=== PATIENT | female | born 1960 | race Caucasian/White ===

== ENCOUNTER → 2018-06-29 14:28 | Outpatient (CLI) | payer MEDICARE, MEDICAID, SELFPAY ==
--- NOTE | 2018-06-29 | DI.MG.S_ITS ---
BILATERAL DIGITAL SCREENING MAMMOGRAM 3D/2D WITH CAD: 06/29/2018 CLINICAL: Routine screening. Comparison is made to exams dated: 06/06/2017 mammogram, 06/02/2016 mammogram, and 08/14/2012 mammogram - [facility]. There are scattered fibroglandular elements in both breasts. Current study was also evaluated with a Computer Aided Detection (CAD) system. No significant masses, calcifications, or other findings are seen in either breast. There has been no significant interval change. IMPRESSION: NEGATIVE There is no mammographic evidence of malignancy. A 1 year screening mammogram is recommended. This exam was interpreted at Station ID: [id number]. NOTE: For mammograms, a report in lay terms will be sent to the patient. Approximately 15% of breast malignancies will not be visualized mammographically. In the management of a palpable breast mass, a negative mammogram must not discourage biopsy of a clinically suspicious lesion. Electronically Signed By: Adalberto hu/leena:07/02/2018 20:23:38 letter sent: Normal Exam ACR BI-RADS Category 1: Negative 3341F
== END ==
PROVIDERS: PCP Family Medicine; Visit Provider Family Medicine
DX: Z12.31 Encounter for screening mammogram for malignant neoplasm of breast (principal)
CPT/HCPCS: 77063; 77067

== ENCOUNTER → 2020-01-15 14:45 | Outpatient (CLI) | payer MEDICARE, MEDICAID, SELFPAY ==
--- NOTE | 2020-01-15 14:47 | DI.RAD.S_ITS ---
PROCEDURE: XR LUMBAR SPINE MIN 4V INDICATIONS: LBP TECHNIQUE: 4 views of the lumbar spine were acquired. COMPARISON: None. FINDINGS: Bones: 5 nonrib-bearing vertebrae are present. There is normal bony alignment. Note is made of a mild degree of degenerative disc disease along the LS-spine to the L5-S1 level where moderate such degeneration can be seen on the lateral view. The facets show moderate degenerative facet osteoarthritis at L3-4 and L4-5 and moderately severe such degeneration at L5-S1. No vertebral body compression fractures. No suspicious bony lesions. Soft tissues: Overlying bowel gas pattern is normal. No suspicious soft tissue calcifications. Oblique images: No pars defects. IMPRESSION: Progressively greater degenerative disc disease and facet osteoarthritis along the lower lumbosacral spine most pronounced at L5-S1 where significant spinal and foraminal stenosis would be suspected. Large body habitus. Dictated by: Jaret Hilliard M.D. on 01/15/2020 at 16:47 Approved by: Jaret Hilliard M.D. on 01/15/2020 at 16:48
== END ==
PROVIDERS: PCP Family Medicine; Referring Provider Physical Medicine & Rehabilitation; Visit Provider Physical Medicine & Rehabilitation
DX: M51.16 Intervertebral disc disorders with radiculopathy, lumbar region (principal); M51.17 Intervertebral disc disorders with radiculopathy, lumbosacral region; M47.26 Other spondylosis with radiculopathy, lumbar region; M47.27 Other spondylosis with radiculopathy, lumbosacral region; E66.01 Morbid (severe) obesity due to excess calories; Z98.84 Bariatric surgery status; Z85.42 Personal history of malignant neoplasm of other parts of uterus
CPT/HCPCS: 72110; 99214

== ENCOUNTER → 2020-02-24 09:58 | Outpatient (CLI) | payer MEDICARE, MEDICAID, SELFPAY ==
[2020-02-25 03:47] LABS: COVID19 Sendout Not Detected (Not Detect)
== END ==
PROVIDERS: PCP Family Medicine; Visit Provider Nurse Practitioner
DX: Z01.812 Encounter for preprocedural laboratory examination (principal)
CPT/HCPCS: 87635

== ENCOUNTER 2020-02-27 13:44 | Outpatient (CLI) | payer MEDICARE, MEDICAID, SELFPAY ==
[2020-02-27] VITALS (8 sets, daily range): BP systolic 117–148; BP diastolic 65–95; PULSE 72–82; RESP 15–18; TEMP 37.3; O2SAT 97–100
--- NOTE | 2020-02-27 | DI.RAD.S_ITS ---
PROCEDURE: PAIN L INTERLAMINAR/CAUDAL INJ INDICATIONS: Other intervertebral disc displacement, lumbosacral region COMPARISON: None. FINDINGS: Fluoroscopic spot filming was performed to verify placement of spinal needles at the L5-S1 level(s), as labeled on the films. Appropriate location(s) of the needle tip(s) was confirmed by injection of iodinated contrast. Dictated by: Alessio Todd M.D. on 02/27/2020 at 16:23 Approved by: Alessio Todd M.D. on 02/27/2020 at 16:25
[2020-02-27] MEDS: MIDAZOLAM 5 MG/5 ML VIAL IV (15:00)
[2020-02-27] MEDS: fentaNYL 100 MCG/2 ML INJ 50 MCG IV (15:00)
[2020-02-27] MEDS: DEXAMETHASONE 10 MG/ML VIAL 20 MG INJ (15:04)
[2020-02-27] MEDS: IOPAMIDOL 15 ML VIAL 3 ML INJ (15:04)
[2020-02-27] MEDS: BETAMETHASONE 30 MG/5 ML MDV 6 MG INJ (15:05)
[2020-02-27] MEDS: BUPIVACAINE 0.25% (PF) VIAL 2 ML INJ (15:05)
--- NOTE | 2020-02-27 15:16 | P.PCN_ITS ---
Date/Time/Diagnoses Date of procedure: 02/27/20 Time of procedure: 15:16 Pre-procedure diagnosis: 1. HNP WITH RADICULAR FEATURES, 2. MULTILEVEL CENTRAL STENOSIS, Post-procedure diagnosis: same Procedure Notes Procedure: 1. FLUOROSCOPICALLY GUIDED CONTRAST CONTROLLED INTERLAMINAR EPIDURAL STEROID INJECTION -para right L5/S1 Indications: Martha is referred by Dr. Treviño for treatment of Bilateral Foraminal Stenosis L>R LE symptoms. Physician: Titus Carranza Total Fluoroscopy time (seconds): 9 Total sedation minutes: 24 Complications: none Procedure in detail & Post-procedure care: FINDINGS Multilevel Central Spinal Stenosis with Nerve Root Compression DESCRIPTION OF PROCEDURE Fluoroscopically guided, contrast-controlled L5/S1 translaminar epidural steroid injection. Following review of allergy and review of potential side effects and complications, including, but not necessarily limited to, infection, allergic reaction, local tissue breakdown, temporary as well as permanent nerve injury, paralysis, stroke and possible , the patient indicated that the patient understood and agreed to proceed. An informed consent document was signed by the patient, witnessed by a nurse, and placed in the patient's chart. Additionally, other treatment options including modalities, medications, and physical therapy were reviewed with the patient. After review of previous anaesthesic history and IV conscious sedation the patient was deemed safe to proceed with today?s procedure with IV conscious sedation as ASA class II designation. Safety time-out was performed to confirm patient ID, procedure to be performed and site of procedure. IV sedation was accomplished with a combination of 3mg of Versed and 50mcg of Fentanyl administered by the RN after DO order, titrated to patient comfort during the course of the procedure while the patient remained responsive to all verbal commands. In the prone position, following sterile prep and drape of the lumbar region, the L5/S1 translaminar space was identified fluoroscopically. The skin was anesthetized via a 25-gauge, 1.5-inch needle with 1% lidocaine solution. At this point, a 22-gauge short bevel spinal needle was atraumatically introduced and advanced under fluoroscopic guidance into the region of the L5/S1 translaminar space. Depth was confirmed on lateral view. Radiological data, including multiple fluoroscopic views of the lumbar spine, reveal a spinal needle at the L5/S1 translaminar space. Lateral views then show placement of the needle in the epidural space. Subsequent views show contrast material flowing superiorly and inferiorly in the epidural space. No vascular or intrathecal uptake is observed. At this point, using loss of resistance technique with saline and air, the epid ural space was entered. This was confirmed following negative aspiration with injection of approximately 1.5 cc of Isovue 200, showing excellent epidural flow without vascular or intrathecal uptake. At this point, 1 cc of 1% lidocaine solution combined with 3cc or 20mg of dexamethasone and 6mg of betamethasone was injected without incident. The patent tolerated the procedure without signs of symptoms of complications prior to transfer to the recovery area for further monitoring. The patient was then transferred to the recovery area where they were observed for an appropriate period of time after the injection. The patient reported a VAS score of 6 prior to the procedure and a post-procedure VAS of 0. POST OP INSTRUCTIONS The patient was provided a Pain Log to continue to record their response to the target-specific procedure prior to follow-up visit with their referring physician. Additionally, specific post-injection care instructions and a contact number to our office were provided if concerns arise regarding possible complications associated with the procedure are suspected.
--- NOTE | 2020-02-27 16:06 | PC.NURSE ---
1518: pt returned to pre proc room by . SBA for transfer from to chair. Monitoring resumed
--- NOTE | 2020-02-27 16:08 | PC.NURSE ---
Pt tolerated procedure well. VSS upon transfer to post procedure room. Report given to LATIA Werner. PERI Fent and Versed given by Kayy Levin. All other meds administered by Dr. Carranza.
== END 2020-02-27 16:00 | disposition home or self-care (01) ==
LOC: RAD 13:46
PROVIDERS: PCP Family Medicine; Referring Provider Physical Medicine & Rehabilitation; Visit Provider Physical Medicine & Rehabilitation
DX: M51.17 Intervertebral disc disorders with radiculopathy, lumbosacral region (principal); M48.07 Spinal stenosis, lumbosacral region
CPT/HCPCS: 62323; 99152; J0702; J1100; J2250; J3010

== ENCOUNTER → 2020-06-26 10:53 | Outpatient (CLI) | payer MEDICARE, MEDICAID, SELFPAY ==
--- NOTE | 2020-06-26 | DI.MG.S_ITS ---
BILATERAL DIGITAL SCREENING MAMMOGRAM 3D/2D WITH CAD: 06/26/2020 CLINICAL: Routine screening. Comparison is made to exam dated: 06/29/2018 [facility]. The tissue of both breasts is predominantly fatty. Current study was also evaluated with a Computer Aided Detection (CAD) system. No significant masses, calcifications, or other findings are seen in either breast. There has been no significant interval change. IMPRESSION: NEGATIVE There is no mammographic evidence of malignancy. A 1 year screening mammogram is recommended. This exam was interpreted at Station ID: [id number]. NOTE: For mammograms, a report in lay terms will be sent to the patient. Approximately 15% of breast malignancies will not be visualized mammographically. In the management of a palpable breast mass, a negative mammogram must not discourage biopsy of a clinically suspicious lesion. Electronically Signed By: Isidra watkins/leena:06/26/2020 13:00:36 letter sent: Normal Exam ACR BI-RADS Category 1: Negative [id number]
== END ==
PROVIDERS: PCP Family Medicine; Referring Provider Family Medicine; Visit Provider Family Medicine
DX: Z12.31 Encounter for screening mammogram for malignant neoplasm of breast (principal)
CPT/HCPCS: 77063; 77067

== ENCOUNTER 2020-07-23 14:08 | Outpatient (CLI) | payer MEDICARE, MEDICAID, SELFPAY ==
[2020-07-23] VITALS (8 sets, daily range): BP systolic 103–135; BP diastolic 59–79; PULSE 74–87; RESP 16–21; TEMP 36.8–36.9; O2SAT 98–100
--- NOTE | 2020-07-23 14:11 | DI.RAD.S_ITS ---
PROCEDURE: PAIN L INTERLAMINAR/CAUDAL INJ INDICATIONS: SPONDYLOSIS COMPARISON: [facility], CR, XR LUMBAR SPINE MIN 4V, 01/15/2020, 14:48. [facility], RG, MRI L-SPINE W/O CONTRAST, 11/29/2019, 11:55. [facility], XA, PAIN L INTERLAMINAR/CAUDAL INJ, 02/27/2020, 14:04. FINDINGS: Fluoroscopic spot filming was performed to verify placement of spinal needles at the L5-S1 level(s), as labeled on the films. Appropriate location(s) of the needle tip(s) was confirmed by injection of iodinated contrast. IMPRESSION: Fluoroscopy for pain management. Dictated by: Juan Enamorado M.D. on 07/23/2020 at 16:03 Approved by: Juan Enamorado M.D. on 07/23/2020 at 16:04
--- NOTE | 2020-07-23 15:07 | PM.PROC.IR.1 ---
Date/Time/Diagnoses Date of procedure: 07/23/20 Time of procedure: 15:29 Pre-procedure diagnosis: 1. HNP WITH RADICULAR FEATURES, 2. MULTILEVEL CENTRAL STENOSIS, Post-procedure diagnosis: same Procedure Notes Procedure: 1. FLUOROSCOPICALLY GUIDED CONTRAST CONTROLLED INTERLAMINAR EPIDURAL STEROID INJECTION - L5/S1 Indications: Martha is referred by Dr. Treviño for treatment of Bilateral Foraminal Stenosis L>R LE symptoms. Physician: Titus Carranza Total Fluoroscopy time (seconds): 5 Total sedation minutes: 10 Complications: none Procedure in detail & Post-procedure care: FINDINGS Multilevel Central Spinal Stenosis with Nerve Root Compression DESCRIPTION OF PROCEDURE Fluoroscopically guided, contrast-controlled L5/S1 translaminar epidural steroid injection. Following review of allergy and review of potential side effects and complications, including, but not necessarily limited to, infection, allergic reaction, local tissue breakdown, temporary as well as permanent nerve injury, paralysis, stroke and possible , the patient indicated that the patient understood and agreed to proceed. An informed consent document was signed by the patient, witnessed by a nurse, and placed in the patient's chart. Additionally, other treatment options including modalities, medications, and physical therapy were reviewed with the patient. After review of previous anaesthesic history and IV conscious sedation the patient was deemed safe to proceed with today?s procedure with IV conscious sedation as ASA class II designation. Safety time-out was performed to confirm patient ID, procedure to be performed and site of procedure. IV sedation was accomplished with a combination of 3mg of Versed and 50mcg of Fentanyl administered by the RN after DO order, titrated to patient comfort during the course of the procedure while the patient remained responsive to all verbal commands. In the prone position, following sterile prep and drape of the lumbar region, the L5/S1 translaminar space was identified fluoroscopically. The skin was anesthetized via a 25-gauge, 1.5-inch needle with 1% lidocaine solution. At this point, a 22-gauge, 5 short bevel spinal needle was atraumatically introduced and advanced under fluoroscopic guidance into the region of the L5/S1 translaminar space. Depth was confirmed on lateral view. Radiological data, including multiple fluoroscopic views of the lumbar spine, reveal a spinal needle at the L5/S1 translaminar space. Lateral views then show placement of the needle in the epidural space. Subsequent views show contrast material flowing superiorly and inferiorly in the epidural space. No vascular or intrathecal uptake is observed. At this point, using loss of resistance technique with saline and air, the epidural space was entered. This was confirmed following negative aspiration with injection of approximately 1.5cc of Isovue 200, showing excellent epidural flow without vascular or intrathecal uptake. At this point, 1cc of 1% lidocaine solution combined with 3cc or 20mg of dexamethasone and 6mg of betamethasone was injected without incident. The patent tolerated the procedure without signs of symptoms of complications prior to transfer to the recovery area for further monitoring. The patient was then transferred to the recovery area where they were observed for an appropriate period of time after the injection. The patient reported a VAS score of 6 prior to the procedure and a post-procedure VAS of 0. POST OP INSTRUCTIONS The patient was provided a Pain Log to continue to record their response to the target-specific procedure prior to follow-up visit with their referring physician. Additionally, specific post-injection care instructions and a contact number to our office were provided if concerns arise regarding possible complications associated with the procedure are suspected.
[2020-07-23] MEDS: fentaNYL 100 MCG/2 ML INJ 50 MCG IV (15:13)
[2020-07-23] MEDS: MIDAZOLAM 5 MG/5 ML VIAL IV (15:13)
[2020-07-23] MEDS: IOPAMIDOL 15 ML VIAL 3 ML INJ (15:18)
[2020-07-23] MEDS: BUPIVACAINE 0.25% (PF) VIAL 2 ML INJ (15:18)
[2020-07-23] MEDS: DEXAMETHASONE 10 MG/ML VIAL 20 MG INJ (15:19)
[2020-07-23] MEDS: BETAMETHASONE 30 MG/5 ML MDV 6 MG INJ (15:19)
== END 2020-07-23 15:45 | disposition home or self-care (01) ==
LOC: RAD 14:10
PROVIDERS: PCP Family Medicine; Referring Provider Physical Medicine & Rehabilitation; Visit Provider Physical Medicine & Rehabilitation
DX: M51.17 Intervertebral disc disorders with radiculopathy, lumbosacral region (principal); M48.07 Spinal stenosis, lumbosacral region
CPT/HCPCS: 62323; 99152; J0702; J1100; J2250; J3010

== ENCOUNTER → 2021-07-22 14:12 | Outpatient (CLI) | payer MEDICARE, MEDICAID, SELFPAY | PROVIDERS: PCP Family Medicine; Visit Provider Family Medicine | DX: R30.0 Dysuria (principal) | CPT/HCPCS: 87086 ==

== ENCOUNTER → 2021-11-01 14:11 | Outpatient (CLI) | payer MEDICARE, MEDICAID, SELFPAY | PROVIDERS: PCP Family Medicine; Visit Provider Family Medicine | DX: Z79.891 Long term (current) use of opiate analgesic (principal) ==

== ENCOUNTER → 2021-12-08 13:10 | Outpatient (CLI) | payer MEDICARE, MEDICAID, SELFPAY ==
--- NOTE | 2021-12-08 13:12 | DI.RAD.S_ITS ---
PROCEDURE: XR LUMBAR SPINE MIN 4V INDICATIONS: BACK PAIN TECHNIQUE: 5 views of the lumbar spine acquired, including flexion and extension views. COMPARISON: [facility], , XR LUMBAR SPINE MIN 4V, 01/15/2020, 14:48. FINDINGS: Bones: 5 nonrib-bearing vertebrae are present. There is normal bony alignment. No vertebral body compression fractures. No suspicious bony lesions. Anterior osteophytes are seen at multiple levels. Disc space narrowing and endplate degenerative changes at T12-L1, L1-2, and L5-S1. Mild facet arthrosis in the lower lumbar spine. There is mild leftward curvature of the thoracolumbar spine. Soft tissues: Overlying bowel gas pattern is normal. No suspicious soft tissue calcifications. Extensive surgical clips of the abdominal wall are noted. Flexion/extension: There is normal range of motion, with preserved normal alignment. IMPRESSION: 1. Degenerative disc disease as above. 2. Facet arthrosis in the lower lumbar spine. 3. No acute abnormality. Dictated by: Andi Conklin M.D. on 12/08/2021 at 16:52 Approved by: Andi Conklin M.D. on 12/08/2021 at 16:54
== END ==
PROVIDERS: PCP Family Medicine; Referring Provider Physical Medicine & Rehabilitation; Visit Provider Physical Medicine & Rehabilitation
DX: M51.27 Other intervertebral disc displacement, lumbosacral region (principal); M47.816 Spondylosis without myelopathy or radiculopathy, lumbar region; M47.817 Spondylosis without myelopathy or radiculopathy, lumbosacral region; M47.815 Spondylosis without myelopathy or radiculopathy, thoracolumbar region; S83.207A Unspecified tear of unspecified meniscus, current injury, left knee, initial encounter; F31.12 Bipolar disorder, current episode manic without psychotic features, moderate; E66.01 Morbid (severe) obesity due to excess calories; Z68.42 Body mass index [BMI] 45.0-49.9, adult
CPT/HCPCS: 72110; 99214

== ENCOUNTER 2022-12-20 10:24 | Emergency (ER) | payer MEDICARE, MEDICAID, SELFPAY ==
[2022-12-20] VITALS (12 sets, daily range): BP systolic 125–147; BP diastolic 61–90; PULSE 79–104; RESP 15–21; TEMP 36.5; O2SAT 95–100; BMI 47.0
--- NOTE | 2022-12-20 10:48 | DI.RAD.S_ITS ---
PROCEDURE: XR CHEST 1V INDICATIONS: Shortness of breath TECHNIQUE: One view of the chest was acquired. COMPARISON: None. FINDINGS: Surgical changes and devices: None. Lungs and pleura: Low lung volumes, limiting evaluation. There may be a right basal opacity. Mediastinum: Borderline enlarged heart. Bones and chest wall: No suspicious bony lesions. Overlying soft tissues appear unremarkable. IMPRESSION: Possible right basal opacity representing infectious/inflammatory airspace disease or atelectasis. Consider future imaging surveillance to assess for resolution. Low lung volumes limit evaluation. Dictated by: Clifton Oneal M.D. on 12/20/2022 at 11:43 Approved by: Clifton Oneal M.D. on 12/20/2022 at 11:43
[2022-12-20 11:01] LABS: Amorphous Sediment Urine 1+; Bacteria Urine Few (2-10); Culture Indicated Urine Specimen Cultured; RBC Urine None Seen (0-5/HPF); Squamous Epithelial Cell Urine 5-10 /HPF (0-5/HPF); WBC Urine 5-10/HPF (0-5/HPF)
[2022-12-20 11:19] LABS: Add Manual Diff / Slide Review NO; Basophils Absolute Auto 100 /uL (0-100); Basophils Percent Auto 0.7 % (0-2); Eosinophils Absolute Auto 100 /uL (0-450); Eosinophils Percent Auto 1.5 % (2-4); Hematocrit 33.6 % (36-46); Hemoglobin 10.5 g/dL (12.0-16.0); Lymphocytes Absolute Auto 2400 /uL (1100-4500); Mean Corpuscular HGB Conc 31.1 % (30-36); Mean Corpuscular Hemoglobin 24.3 PG (26-34); Monocytes Absolute Auto 800 /uL (0-900); Monocytes Percent Auto 7.7 % (3-14); Neutrophils Absolute Auto 6300 /uL (1500-7000); Neutrophils Percent Auto 65.1 % (50-75); Platelet Count 296 X10^3/uL (150-400); Red Cell Distribution Width 17.2 % (11.6-14.8); White Blood Cell Count 9.8 X10^3/uL (4.5-11.0)
[2022-12-20 11:39] LABS: Alanine Aminotransferase 25 IU/L (<35); Albumin 3.8 g/dL (3.5-5.0); Albumin Globulin Ratio 1.2 (1.0-2.8); Alkaline Phosphatase 77 U/L (38-126); Aspartate Aminotransferase 36 IU/L (14-36); BUN Creatinine Ratio 22.1 (6-22); Bilirubin Total 0.8 mg/dL (0.2-1.3); Blood Urea Nitrogen 19 mg/dL (7-17); Calcium 8.3 mg/dL (8.4-10.2); Carbon Dioxide 21 mmol/L (22-32); Chloride 106 mmol/L (98-107); Creatine Kinase 127 U/L (30-135); Estimated Glomerular Filt Rate > 60 mL/min (>60); Globulin 3.3 g/dL (1.7-4.1); Glucose 311 mg/dL (80-110); HEMOLYSIS < 15 (0-50); Lipase 85 U/L (23-300); Magnesium 1.3 mg/dL (1.6-2.3); Potassium 4.1 mmol/L (3.4-5.1); Sodium 139 mmol/L (137-145); Total Protein 7.1 g/dL (6.3-8.2)
[2022-12-20 11:47] LABS: COVID19 -Nasal RAPID Negative (Negative)
[2022-12-20 11:51] LABS: NT-proBNP (BNP-Adult 18+) 131 pg/mL (<125); Troponin I < 0.012 ng/mL (0.01-0.034)
[2022-12-20 11:54] LABS: CKMB % Relative Index 2.1 % (1.5-5.0); Creatine Kinase MB 2.64 ng/mL (<2.37)
--- NOTE | 2022-12-20 13:05 | DI.ECHO.S_ITS ---
[facility] +---------+ : : [address] : : [place], [place] : : : : [id number] : : : : Phone: [phone]+ Echocardiogram Report + + :Name: ALLAN GARCIA Study Date: 12/20/2022 Height: 67 in : :[facility] ReadingLocation: Weight: 300 lb : : Gender: Female BSA: 2.4 m2 : :: 1960 Age: 62 yrs BP: 146/80 mmHg: :Reason For Study: SHORTNESS OF BREATH : :Ordering Physician: OCTAVIA SINGHAPerformed By: Augusta Rosario : :Referring: MARNIE SINGH : + + Interpretation Summary This is a technically difficult study enhanced with Definity echocontrast. Normal LV size, wall thickness, wall motion and LV systolic function. EF is 60-65%. Normal chamber sizes. No significant valvular abnormalities. No prior study available for comparison. Procedure: A two-dimensional transthoracic echocardiogram with color flow and Doppler was performed. The study quality was technically difficult. There is no prior echocardiogram noted for this patient. A contrast injection of Definity was performed to improve assessment of LV function. The patient was in sinus rhythm with heart rates between 75-100 bpm during the exam. Left Ventricle: The left ventricle is normal in size and wall thickness. The ejection fraction is estimated to be 60-65%. Right Ventricle: The right ventricle is grossly normal size. The right ventricular systolic function is normal. Atria: The left atrial size is normal. Right atrial size is normal. There is no Doppler evidence for an interatrial shunt. Mitral Valve: The mitral valve is normal in structure and function. There is no mitral regurgitation noted. Aortic Valve: The aortic valve is trileaflet. The aortic valve opens well. There is no aortic valve stenosis. No aortic regurgitation is present. Tricuspid Valve: The tricuspid valve is normal in structure and function. There is a trace or physiologic amount of tricuspid regurgitation. Pulmonic Valve: The pulmonic valve is not well visualized. There is no pulmonic valvular regurgitation. Great Vessels: The aortic root is normal size. The dimensions of the ascending aorta are normal. The inferior vena cava was not well visualized. Pericardium/ Pleura There is no pericardial effusion. There is no pleural effusion. MMode/2D Measurements & Calculations LVIDd: 4.6 cm LVOT diam: 2.1 cm LVIDs: 3.1 cm Ao root diam: 2.8 cm FS: 33.3 % asc Aorta Diam: 2.9 cm IVSd: 1.0 cm LVPWd: 0.91 cm LV sousa. diameter/BSA (cm/m^2): 1.9 LV sys. diameter/BSA (cm/m^2): 1.3 LA A2 area: 18.2 cm2 RA long axis: 4.4 cm LA A4 area: 19.0 cm2 RA area: 13.9 cm2 LA length (vol): 5.3 cm RA vol: 37.5 ml LA vol: 55.4 ml RA : 15.6 ml/m2 LA vol index: 23.1 ml/m2 RVD1 (basal): 4.1 cm RVD2 (mid): 3.4 cm TAPSE: 2.3 cm Doppler Measurements & Calculations Ao V2 max: 104.8 cm/sec LVOT Max Mikey: 69.3 cm/sec Ao V2 mean: 81.7 cm/sec LV V1 max P.9 mmHg Ao max P.4 mmHg LV V1 VTI: 17.2 cm Ao mean P.8 mmHg ANGELIKA(I,D): 2.5 cm2 Ao V2 VTI: 23.6 cm ANGELIKA(V,D): 2.3 cm2 sev ratio: 0.73 ANGELIKA indexed to BSA (cm^2/m^2): 1.0 MV E max mikey: 69.3 cm/sec SV(LVOT): 59.1 ml MV A max mikey: 74.4 cm/sec MV E/A: 0.93 Med Peak E' Mikey: 6.1 cm/sec E/E' med: 11.3 Lat Peak E' Mikey: 6.7 cm/sec E/E' lat: 10.4 E/e' average: 10.8 MV dec time: 0.21 sec Electronically signed by: Sue Rico M.D. on Reading Physician:12/20/2022 04:21 PM
--- NOTE | 2022-12-20 14:19 | ED_ITS ---
HPI - General Adult <Sandra Shearer PA-C - Last Filed: 12/20/22 18:11> General Chief complaint: Shortness of Breath/Dyspnea Stated complaint: trouble breathing x 1 wk; Time Seen by Provider: 12/20/22 10:50 Source: patient Mode of arrival: Ambulatory History of Present Illness HPI narrative: 62-year-old female with past medical history depression, osteoarthritis, anxiety, chronic pain, obstructive sleep apnea presents to the ED with 3 months of worsening fatigue, shortness of breath. Patient states that she is homebound in her 2nd floor apartment since she is unable to climb stairs due to her knee condition, is therefore extremely sedentary. Patient states that she has had worsening fatigue and shortness of breath over the 3 months. Patient states that she awakens every night from sleep feeling sweaty and short of breath. Patient denies chest pain, fever, chills, nausea, vomiting, abdominal pain, dysuria, lightheadedness, dizziness, syncope. Patient was seen by her PCP Dr. Miller last week, he recommended that she be screened with the echocardiogram and labs for congestive heart failure. Patient lost her to congestive heart failure some years ago, and is extremely anxious to get the echocardiogram as soon as possible. The echo is currently scheduled for January, patient states that she would like to expedite that. Related Data Previous Rx's Medication Instructions Recorded triamcinolone acetonide 0.5 % 1 applic topical BID #15 grams 05/02/22 topical cream paroxetine HCl 20 mg tablet (Paxil) 20 mg PO DAILY #90 tabs 07/05/22 naloxone 4 mg/actuation nasal 4 mg intranasal Q3M PRN opioid 09/19/22 spray (Narcan) overdose #2 ea quetiapine 25 mg tablet (Seroquel) 25 mg PO BID #180 tabs 09/19/22 ibuprofen 800 mg tablet 800 mg PO .PRN #30 tabs 09/20/22 diazepam 2 mg tablet 2 mg PO TID PRN anxiety #90 tabs 11/17/22 hylan g-f 20 48 mg/6 mL 48 mg (6 mL) intra-articular ONCE 11/23/22 intra-articular syringe #6 mL (Mabaya) elevated toilet seat #1 ea 11/24/22 oxycodone-acetaminophen 10 mg-325 2 tab PO QID #240 tabs 12/19/22 mg tablet (Percocet) cefpodoxime 200 mg tablet 200 mg PO BID 10 days #20 tabs 12/20/22 Allergies Allergy/AdvReac Type Severity Reaction Status Date / Time No Known Drug Allergies Allergy Verified 12/12/22 14:24 Review of Systems <Sandra Shearer PA-C - Last Filed: 12/20/22 18:11> Review of Systems ROS Unobtainable: All systems reviewed & are unremarkable except as noted in HPI and below Constitutional Constitutional: Denies chills, Denies fatigue, Denies fever(s), Denies frequent falls, Denies lethargy and Denies weakness Eyes Eyes: Denies change in vision, Denies eye discharge, Denies irritation and Denies loss of vision ENT Ears, Nose, Mouth, and Throat: Denies change in voice, Denies dizziness, Denies neck pain, Denies sore throat and Denies throat swelling Cardiovascular Cardiovascular: Denies chest pain, Denies irregular heart rhythm, Denies lightheadedness, Denies palpitations, Denies dyspnea, Denies dyspnea on exertion and Denies orthopnea Respiratory Respiratory: Denies cough, Denies dyspnea, Denies dyspnea on exertion and Denies wheezing Gastrointestinal Gastrointestinal: Denies abdominal pain, Denies change in bowel habits, Denies diarrhea, Denies nausea and Denies vomiting Genitourinary Genitourinary: Denies hematuria, Denies flank pain, Denies urinary incontinence and Denies urinary urgency Musculoskeletal Musculoskeletal: Denies back pain, Denies muscle weakness, Denies neck pain, Denies numbness and Denies tingling Integumentary/Breasts Skin/Breast: Denies pruritus, Denies erythema, Denies rash and Denies wounds Neurologic Neurologic: Denies behavioral changes, Denies confusion, Denies dizziness, Denies frequent falls, Denies loss of vision, Denies numbness, Denies tingling and Denies weakness Psychiatric Psychiatric: Denies anxiety, Denies behavioral changes, Denies confusion, Denies depression, Denies homicidal ideation and Denies suicidal ideation Endocrine Endocrine: Denies fatigue, Denies flushing and Denies palpitations Hematologic/Lymphatic Hematologic/Lymphatic: Denies easy bruising Allergic/Immunologic Allergic/Immunologic: Denies urticaria, Denies throat swelling and Denies wheezing Patient History <Sandra Shearer PA-C - Last Filed: 12/20/22 18:11> Medical History Acne Acquired spondylolysis of lumbar spine Acute bilateral low back pain with bilateral sciatica Acute meniscal tear of left knee Anxiety (~2009) Benign paroxysmal vertigo Bipolar disorder Chronic back pain (~2006) Chronic pain syndrome Depression (~2009) Endometrial cancer (~2015) Facet arthropathy, lumbar Fractures (~1985) Hearing loss Heavy menstrual period (~1977) Herniated nucleus pulposus, L5-S1, right History of uterine cancer (~2013) Irregular menstrual cycle (~1974) Medicare annual wellness visit, subsequent Morbid obesity Morbid obesity due to excess calories Obstructive sleep apnea Osteoarthritis of left knee Other dorsalgia Ovarian cyst (~1973) Pain in left arm Pain in right leg Painful menstrual periods (~1974) Prediabetes Psoriasis Sleep apnea, unspecified Vision disorder Well adult exam Surgical History Anesthesia H/O: hysterectomy History of foot surgery (~1985) History of gastric bypass (~2000) History of tonsillectomy Status post gastric bypass for obesity Status post laparoscopic cholecystectomy Family History Father Diabetes mellitus Mother Brain bleed Social History Smoking Status: Never smoker Smoking Status: Never smoker Substance Use Type: does not use Exam <Sandra Shearer PA-C - Last Filed: 12/20/22 18:11> Narrative Exam Narrative: Const General:?cooperative, healthy appearing and comfortable [facility] Head:?normal to inspection Ears:?hearing grossly normal bilaterally Nose:?external nose normal Face and sinus:?normal facial exam and sinuses nontender Mouth:?oral mucosae normal Throat:?posterior oropharynx normal Eyes General:?appearance normal, both eyes and all related structures Neck Neck:?normal visual inspection and no lymphadenopathy noted Resp Effort & Inspection:?normal respiratory effort Auscultation:?clear to auscultation bilaterally Cardio Rate:?regular rate Rhythm:?regular rhythm GI Abdomen appears distended, is however soft. No tenderness to palpation. Neuro General:?patient alert, patient awake and patient oriented x3 Initial Vital Signs Initial Vital Signs: Vital Signs Pulse Rate 104 H 12/20/22 10:36 Pulse Oximetry 96 12/20/22 10:36 <Jeramie Costa DO - Last Filed: 12/20/22 18:32> Initial Vital Signs Initial Vital Signs: Vital Signs Pulse Rate 104 H 12/20/22 10:36 Pulse Oximetry 96 12/20/22 10:36 Course <Sandra Shearer PA-C - Last Filed: 12/20/22 18:11> Orders Ordered: ED Orders 12/20/22 10:38 Urine Culture Stat Urine Microscopic Stat 12/20/22 10:48 XR chest 1V Stat EKG-12 Lead Stat Measure peak expiratory flow ONCE RT Consult Eval and Treat NOW 12/20/22 11:09 Complete Blood Count AUTO DIFF Stat Comprehensive Metabolic Panel Stat D Dimer Stat Lactate (Lactic Acid) Stat Lipase Stat Magnesium Stat NT-proBNP (BNP-Adult 18+) Stat Prothrombin Time INR Stat Troponin & CK Cardiac Panel Stat 12/20/22 11:23 COVID19 -Nasal RAPID Stat 12/20/22 12:59 Consult to SPOOL TENDER - Cardiac Rehabilitation Program Director Stat 12/20/22 13:00 VBG [Venous Blood Gas] Stat 12/20/22 13:05 EC echo complete with contrast Stat 12/20/22 13:18 Venous Blood Gas Stat 12/20/22 16:15 Troponin I Stat Discontinued Medications Sodium Chloride (Normal Saline 0.9%) 1,000 mls @ 1,000 mls/hr IV BOLUS ONE Stop: 12/20/22 16:07 Last Infusion: 12/20/22 16:58 Dose: 0 mls/hr Documented By: Admin: 12/20/22 16:30 Dose: 1,000 mls/hr Documented By: MAYELIN Vital Signs Vital signs: Vital Signs - 8 hr 12/20/22 10:41 12/20/22 10:36 12/20/22 10:37 Temperature 97.7 F Pulse Rate 93 H 104 H 97 H Respiratory Rate 20 Blood Pressure 141/75 H Pulse Oximetry 99 96 99 Oxygen Delivery Method Room Air 12/20/22 10:37 12/20/22 11:00 12/20/22 11:12 Temperature Pulse Rate 82 88 Respiratory Rate Blood Pressure 147/75 H Pulse Oximetry 95 98 Oxygen Delivery Method 12/20/22 11:12 12/20/22 11:30 12/20/22 11:54 Temperature Pulse Rate 79 89 Respiratory Rate Blood Pressure 125/63 Pulse Oximetry 97 98 Oxygen Delivery Method 12/20/22 11:54 12/20/22 11:57 12/20/22 11:57 Temperature Pulse Rate 80 Respiratory Rate 21 Blood Pressure 135/68 133/61 Pulse Oximetry 100 Oxygen Delivery Method 12/20/22 12:00 12/20/22 12:01 12/20/22 12:01 Temperature Pulse Rate 82 82 Respiratory Rate 15 17 Blood Pressure 146/70 H Pulse Oximetry 97 96 Oxygen Delivery Method 12/20/22 12:35 12/20/22 16:57 Temperature Pulse Rate 79 Respiratory Rate 18 Blood Pressure 140/90 Pulse Oximetry 98 95 Oxygen Delivery Method Room Air <Jeramie Costa DO - Last Filed: 12/20/22 18:32> Orders Ordered: ED Orders 12/20/22 10:38 Urine Culture Stat Urine Microscopic Stat 12/20/22 10:48 XR chest 1V Stat EKG-12 Lead Stat Measure peak expiratory flow ONCE RT Consult Eval and Treat NOW 12/20/22 11:09 Complete Blood Count AUTO DIFF Stat Comprehensive Metabolic Panel Stat D Dimer Stat Lactate (Lactic Acid) Stat Lipase Stat Magnesium Stat NT-proBNP (BNP-Adult 18+) Stat Prothrombin Time INR Stat Troponin & CK Cardiac Panel Stat 12/20/22 11:23 COVID19 -Nasal RAPID Stat 12/20/22 12:59 Consult to SPOOL TENDER - Cardiac Rehabilitation Program Director Stat 12/20/22 13:00 VBG [Venous Blood Gas] Stat 12/20/22 13:05 EC echo complete with contrast Stat 12/20/22 13:18 Venous Blood Gas Stat 12/20/22 16:15 Troponin I Stat Discontinued Medications Sodium Chloride (Normal Saline 0.9%) 1,000 mls @ 1,000 mls/hr IV BOLUS ONE Stop: 12/20/22 16:07 Last Infusion: 12/20/22 16:58 Dose: 0 mls/hr Documented By: Admin: 12/20/22 16:30 Dose: 1,000 mls/hr Documented By: MAYELIN Vital Signs Vital signs: Vital Signs - 8 hr 12/20/22 10:41 12/20/22 10:36 12/20/22 10:37 Temperature 97.7 F Pulse Rate 93 H 104 H 97 H Respiratory Rate 20 Blood Pressure 141/75 H Pulse Oximetry 99 96 99 Oxygen Delivery Method Room Air 12/20/22 10:37 12/20/22 11:00 12/20/22 11:12 Temperature Pulse Rate 82 88 Respiratory Rate Blood Pressure 147/75 H Pulse Oximetry 95 98 Oxygen Delivery Method 12/20/22 11:12 12/20/22 11:30 12/20/22 11:54 Temperature Pulse Rate 79 89 Respiratory Rate Blood Pressure 125/63 Pulse Oximetry 97 98 Oxygen Delivery Method 12/20/22 11:54 12/20/22 11:57 12/20/22 11:57 Temperature Pulse Rate 80 Respiratory Rate 21 Blood Pressure 135/68 133/61 Pulse Oximetry 100 Oxygen Delivery Method 12/20/22 12:00 12/20/22 12:01 12/20/22 12:01 Temperature Pulse Rate 82 82 Respiratory Rate 15 17 Blood Pressure 146/70 H Pulse Oximetry 97 96 Oxygen Delivery Method 12/20/22 12:35 12/20/22 16:57 Temperature Pulse Rate 79 Respiratory Rate 18 Blood Pressure 140/90 Pulse Oximetry 98 95 Oxygen Delivery Method Room Air Medical Decision Making <Sandra Shearer PA-C - Last Filed: 12/20/22 18:11> Lab Data 12/20/22 11:09 12/20/22 11:09 Labs: Lab Results 12/20/22 12/20/22 12/20/22 Range/Units 10:38 11:09 11:09 WBC (4.5-11.0) X10^3/uL RBC (4.0-5.2) X10^6/uL Hgb (12.0-16.0) g/dL Hct (36-46) % MCV (80-100) fL MCH (26-34) PG MCHC (30-36) % RDW (11.6-14.8) % Plt Count (150-400) X10^3/uL Neut % (Auto) (50-75) % Lymph % (Auto) (25-40) % [place] % (Auto) (3-14) % Eos % (Auto) (2-4) % Baso % (Auto) (0-2) % Neut # (Auto) (0489-3979) /uL Lymph # (Auto) (8257-5005) /uL [place] # (Auto) (0-900) /uL Eos # (Auto) (0-450) /uL Baso # (Auto) (0-100) /uL PT 13.2 H (10.1-12.7) SECONDS INR 1.2 (0.9-1.3) D-Dimer (<500) ng/ml VBG pH (7.33-7.43) VBG pCO2 (45-50) mmHg VBG pO2 (35-45) mmHg VBG HCO3 (24-28) mmol/L VBG Total CO2 (24-29) mmol/L VBG O2 Saturation (70-75) % VBG Base Excess (0-4) mmol/L FiO2 Sodium (137-145) mmol/L Potassium (3.4-5.1) mmol/L Chloride (98-107) mmol/L Carbon Dioxide (22-32) mmol/L BUN (7-17) mg/dL Creatinine (0.52-1.04) mg/dL Estimated GFR (>60) mL/min BUN/Creatinine Ratio (6-22) Glucose (80-110) mg/dL Lactate 3.1 H (0.7-2.1) mmol/L Calcium (8.4-10.2) mg/dL Magnesium (1.6-2.3) mg/dL Total Bilirubin (0.2-1.3) mg/dL AST (14-36) IU/L ALT (<35) IU/L Alkaline Phosphatase (38-126) U/L Total Creatine Kinase (30-135) U/L CK-MB (CK-2) (<2.37) ng/mL CK-MB (CK-2) Rel Index (1.5-5.0) % Troponin I (0.01-0.034) ng/mL NT-Pro-B Natriuret Pep (<125) pg/mL Total Protein (6.3-8.2) g/dL Albumin (3.5-5.0) g/dL Globulin (1.7-4.1) g/dL Albumin/Globulin Ratio (1.0-2.8) Lipase (23-300) U/L Urine RBC None seen (0-5/HPF) Urine WBC 5-10/hpf H (0-5/HPF) Ur Squamous Epith Cells 5-10 /hpf H (0-5/HPF) Amorphous Sediment 1+ Urine Bacteria Few (2-10) H (None) Ur Culture Indicated? Specimen cultured SARS-CoV-2 (PCR) (Negative) 12/20/22 12/20/22 12/20/22 Range/Units 11:09 11:09 11:09 WBC 9.8 (4.5-11.0) X10^3/uL RBC 4.30 (4.0-5.2) X10^6/uL Hgb 10.5 L (12.0-16.0) g/dL Hct 33.6 L (36-46) % MCV 78.0 L (80-100) fL MCH 24.3 L (26-34) PG MCHC 31.1 (30-36) % RDW 17.2 H (11.6-14.8) % Plt Count 296 (150-400) X10^3/uL Neut % (Auto) 65.1 (50-75) % Lymph % (Auto) 25.0 (25-40) % [place] % (Auto) 7.7 (3-14) % Eos % (Auto) 1.5 L (2-4) % Baso % (Auto) 0.7 (0-2) % Neut # (Auto) 6300 (5994-7964) /uL Lymph # (Auto) 2400 (0537-2206) /uL [place] # (Auto) 800 (0-900) /uL Eos # (Auto) 100 (0-450) /uL Baso # (Auto) 100 (0-100) /uL PT (10.1-12.7) SECONDS INR (0.9-1.3) D-Dimer 669 H (<500) ng/ml VBG pH (7.33-7.43) VBG pCO2 (45-50) mmHg VBG pO2 (35-45) mmHg VBG HCO3 (24-28) mmol/L VBG Total CO2 (24-29) mmol/L VBG O2 Saturation (70-75) % VBG Base Excess (0-4) mmol/L FiO2 Sodium 139 (137-145) mmol/L Potassium 4.1 (3.4-5.1) mmol/L Chloride 106 (98-107) mmol/L Carbon Dioxide 21 L (22-32) mmol/L BUN 19 H (7-17) mg/dL Creatinine 0.86 (0.52-1.04) mg/dL Estimated GFR > 60 (>60) mL/min BUN/Creatinine Ratio 22.1 H (6-22) Glucose 311 H (80-110) mg/dL Lactate (0.7-2.1) mmol/L Calcium 8.3 L (8.4-10.2) mg/dL Magnesium 1.3 L (1.6-2.3) mg/dL Total Bilirubin 0.8 (0.2-1.3) mg/dL AST 36 (14-36) IU/L ALT 25 (<35) IU/L Alkaline Phosphatase 77 (38-126) U/L Total Creatine Kinase 127 (30-135) U/L CK-MB (CK-2) 2.64 H (<2.37) ng/mL CK-MB (CK-2) Rel Index 2.1 (1.5-5.0) % Troponin I < 0.012 (0.01-0.034) ng/mL NT-Pro-B Natriuret Pep 131 H (<125) pg/mL Total Protein 7.1 (6.3-8.2) g/dL Albumin 3.8 (3.5-5.0) g/dL Globulin 3.3 (1.7-4.1) g/dL Albumin/Globulin Ratio 1.2 (1.0-2.8) Lipase 85 (23-300) U/L Urine RBC (0-5/HPF) Urine WBC (0-5/HPF) Ur Squamous Epith Cells (0-5/HPF) Amorphous Sediment Urine Bacteria (None) Ur Culture Indicated? SARS-CoV-2 (PCR) (Negative) 12/20/22 12/20/22 12/20/22 Range/Units 11:23 13:18 16:15 WBC (4.5-11.0) X10^3/uL RBC (4.0-5.2) X10^6/uL Hgb (12.0-16.0) g/dL Hct (36-46) % MCV (80-100) fL MCH (26-34) PG MCHC (30-36) % RDW (11.6-14.8) % Plt Count (150-400) X10^3/uL Neut % (Auto) (50-75) % Lymph % (Auto) (25-40) % [place] % (Auto) (3-14) % Eos % (Auto) (2-4) % Baso % (Auto) (0-2) % Neut # (Auto) (8140-1009) /uL Lymph # (Auto) (6925-9688) /uL [place] # (Auto) (0-900) /uL Eos # (Auto) (0-450) /uL Baso # (Auto) (0-100) /uL PT (10.1-12.7) SECONDS INR (0.9-1.3) D-Dimer (<500) ng/ml VBG pH 7.38 (7.33-7.43) VBG pCO2 40.6 L (45-50) mmHg VBG pO2 52 H (35-45) mmHg VBG HCO3 24 (24-28) mmol/L VBG Total CO2 25 (24-29) mmol/L VBG O2 Saturation 86 H (70-75) % VBG Base Excess -1.0 L (0-4) mmol/L FiO2 21 Sodium (137-145) mmol/L Potassium (3.4-5.1) mmol/L Chloride (98-107) mmol/L Carbon Dioxide (22-32) mmol/L BUN (7-17) mg/dL Creatinine (0.52-1.04) mg/dL Estimated GFR (>60) mL/min BUN/Creatinine Ratio (6-22) Glucose (80-110) mg/dL Lactate (0.7-2.1) mmol/L Calcium (8.4-10.2) mg/dL Magnesium (1.6-2.3) mg/dL Total Bilirubin (0.2-1.3) mg/dL AST (14-36) IU/L ALT (<35) IU/L Alkaline Phosphatase (38-126) U/L Total Creatine Kinase (30-135) U/L CK-MB (CK-2) (<2.37) ng/mL CK-MB (CK-2) Rel Index (1.5-5.0) % Troponin I < 0.012 (0.01-0.034) ng/mL NT-Pro-B Natriuret Pep (<125) pg/mL Total Protein (6.3-8.2) g/dL Albumin (3.5-5.0) g/dL Globulin (1.7-4.1) g/dL Albumin/Globulin Ratio (1.0-2.8) Lipase (23-300) U/L Urine RBC (0-5/HPF) Urine WBC (0-5/HPF) Ur Squamous Epith Cells (0-5/HPF) Amorphous Sediment Urine Bacteria (None) Ur Culture Indicated? SARS-CoV-2 (PCR) Negative (Negative) Urine Dip Bedside Urine Glucose 1000 mg/dl Bedside Urine Bilirubin ++ 2 Bedside Urine Ketone +/- 5 Urine Specific [place] 1.020 Bedside Urine Occult Blood - Negative Bedside Urine pH 5.5 Bedside Urine Protein +/- 15 Bedside Urine Urobilinogen - Negative Bedside Urine Nitrite - Negative Bedside Urine Leukocytes +/- 15 Esterase Point of care testing: Urine Dip Bedside Urine Glucose 1000 mg/dl Bedside Urine Bilirubin ++ 2 Bedside Urine Ketone +/- 5 Urine Specific [place] 1.020 Bedside Urine Occult Blood - Negative Bedside Urine pH 5.5 Bedside Urine Protein +/- 15 Bedside Urine Urobilinogen - Negative Bedside Urine Nitrite - Negative Bedside Urine Leukocytes +/- 15 Esterase MDM Narrative Medical decision making narrative: 62-year-old female with past medical history depression, osteoarthritis, anxiety, chronic pain, obstructive sleep apnea presents to the ED with 3 months of worsening fatigue, shortness of breath. Concern for ACS versus CHF versus pneumonia versus PE versus AKILAH versus other. Will obtain chest x-ray, EKG, labs, troponin, BNP, D-dimer. Blood glucose at 3:11 a.m. urine positive for ketones. Obtained a VBG, pH is normal at 7.377. Patient is not in DKA. Urine is positive for UTI. Chest x- ray shows possible pneumonia. Age adjusted D-dimer within normal limits. NT pro BNP within normal limits. Echo was ordered, given that patient has limited mobility to get out of her apartment easily. Echo with no abnormal findings. Troponin x2 normal. EKG normal. Discussed findings with patient. Recommend follow-up for evaluation for obstructive sleep apnea. Counseled patient that obstructive sleep apnea can cause symptoms similar to what she is experiencing including waking up short of breath, feeling sweaty and daytime fatigue. Prescribed cefpodoxime for UTI. Patient agrees to follow-up with her PCP, she already has a appointment scheduled. ED return precautions were discussed with patient. Patient verbalized understanding. Medical records reviewed: Yes <Jeramie Costa, DO - Last Filed: 12/20/22 18:32> Lab Data Labs: Lab Results 12/20/22 12/20/22 12/20/22 Range/Units 10:38 11:09 11:09 WBC (4.5-11.0) X10^3/uL RBC (4.0-5.2) X10^6/uL Hgb (12.0-16.0) g/dL Hct (36-46) % MCV (80-100) fL MCH (26-34) PG MCHC (30-36) % RDW (11.6-14.8) % Plt Count (150-400) X10^3/uL Neut % (Auto) (50-75) % Lymph % (Auto) (25-40) % [place] % (Auto) (3-14) % Eos % (Auto) (2-4) % Baso % (Auto) (0-2) % Neut # (Auto) (8137-9740) /uL Lymph # (Auto) (6584-3203) /uL [place] # (Auto) (0-900) /uL Eos # (Auto) (0-450) /uL Baso # (Auto) (0-100) /uL PT 13.2 H (10.1-12.7) SECONDS INR 1.2 (0.9-1.3) D-Dimer (<500) ng/ml VBG pH (7.33-7.43) VBG pCO2 (45-50) mmHg VBG pO2 (35-45) mmHg VBG HCO3 (24-28) mmol/L VBG Total CO2 (24-29) mmol/L VBG O2 Saturation (70-75) % VBG Base Excess (0-4) mmol/L FiO2 Sodium (137-145) mmol/L Potassium (3.4-5.1) mmol/L Chloride (98-107) mmol/L Carbon Dioxide (22-32) mmol/L BUN (7-17) mg/dL Creatinine (0.52-1.04) mg/dL Estimated GFR (>60) mL/min BUN/Creatinine Ratio (6-22) Glucose (80-110) mg/dL Lactate 3.1 H (0.7-2.1) mmol/L Calcium (8.4-10.2) mg/dL Magnesium (1.6-2.3) mg/dL Total Bilirubin (0.2-1.3) mg/dL AST (14-36) IU/L ALT (<35) IU/L Alkaline Phosphatase (38-126) U/L Total Creatine Kinase (30-135) U/L CK-MB (CK-2) (<2.37) ng/mL CK-MB (CK-2) Rel Index (1.5-5.0) % Troponin I (0.01-0.034) ng/mL NT-Pro-B Natriuret Pep (<125) pg/mL Total Protein (6.3-8.2) g/dL Albumin (3.5-5.0) g/dL Globulin (1.7-4.1) g/dL Albumin/Globulin Ratio (1.0-2.8) Lipase (23-300) U/L Urine RBC None seen (0-5/HPF) Urine WBC 5-10/hpf H (0-5/HPF) Ur Squamous Epith Cells 5-10 /hpf H (0-5/HPF) Amorphous Sediment 1+ Urine Bacteria Few (2-10) H (None) Ur Culture Indicated? Specimen cultured SARS-CoV-2 (PCR) (Negative) 12/20/22 12/20/22 12/20/22 Range/Units 11:09 11:09 11:09 WBC 9.8 (4.5-11.0) X10^3/uL RBC 4.30 (4.0-5.2) X10^6/uL Hgb 10.5 L (12.0-16.0) g/dL Hct 33.6 L (36-46) % MCV 78.0 L (80-100) fL MCH 24.3 L (26-34) PG MCHC 31.1 (30-36) % RDW 17.2 H (11.6-14.8) % Plt Count 296 (150-400) X10^3/uL Neut % (Auto) 65.1 (50-75) % Lymph % (Auto) 25.0 (25-40) % [place] % (Auto) 7.7 (3-14) % Eos % (Auto) 1.5 L (2-4) % Baso % (Auto) 0.7 (0-2) % Neut # (Auto) 6300 (2694-1901) /uL Lymph # (Auto) 2400 (0316-4424) /uL [place] # (Auto) 800 (0-900) /uL Eos # (Auto) 100 (0-450) /uL Baso # (Auto) 100 (0-100) /uL PT (10.1-12.7) SECONDS INR (0.9-1.3) D-Dimer 669 H (<500) ng/ml VBG pH (7.33-7.43) VBG pCO2 (45-50) mmHg VBG pO2 (35-45) mmHg VBG HCO3 (24-28) mmol/L VBG Total CO2 (24-29) mmol/L VBG O2 Saturation (70-75) % VBG Base Excess (0-4) mmol/L FiO2 Sodium 139 (137-145) mmol/L Potassium 4.1 (3.4-5.1) mmol/L Chloride 106 (98-107) mmol/L Carbon Dioxide 21 L (22-32) mmol/L BUN 19 H (7-17) mg/dL Creatinine 0.86 (0.52-1.04) mg/dL Estimated GFR > 60 (>60) mL/min BUN/Creatinine Ratio 22.1 H (6-22) Glucose 311 H (80-110) mg/dL Lactate (0.7-2.1) mmol/L Calcium 8.3 L (8.4-10.2) mg/dL Magnesium 1.3 L (1.6-2.3) mg/dL Total Bilirubin 0.8 (0.2-1.3) mg/dL AST 36 (14-36) IU/L ALT 25 (<35) IU/L Alkaline Phosphatase 77 (38-126) U/L Total Creatine Kinase 127 (30-135) U/L CK-MB (CK-2) 2.64 H (<2.37) ng/mL CK-MB (CK-2) Rel Index 2.1 (1.5-5.0) % Troponin I < 0.012 (0.01-0.034) ng/mL NT-Pro-B Natriuret Pep 131 H (<125) pg/mL Total Protein 7.1 (6.3-8.2) g/dL Albumin 3.8 (3.5-5.0) g/dL Globulin 3.3 (1.7-4.1) g/dL Albumin/Globulin Ratio 1.2 (1.0-2.8) Lipase 85 (23-300) U/L Urine RBC (0-5/HPF) Urine WBC (0-5/HPF) Ur Squamous Epith Cells (0-5/HPF) Amorphous Sediment Urine Bacteria (None) Ur Culture Indicated? SARS-CoV-2 (PCR) (Negative) 12/20/22 12/20/22 12/20/22 Range/Units 11:23 13:18 16:15 WBC (4.5-11.0) X10^3/uL RBC (4.0-5.2) X10^6/uL Hgb (12.0-16.0) g/dL Hct (36-46) % MCV (80-100) fL MCH (26-34) PG MCHC (30-36) % RDW (11.6-14.8) % Plt Count (150-400) X10^3/uL Neut % (Auto) (50-75) % Lymph % (Auto) (25-40) % [place] % (Auto) (3-14) % Eos % (Auto) (2-4) % Baso % (Auto) (0-2) % Neut # (Auto) (5320-4054) /uL Lymph # (Auto) (7464-4256) /uL [place] # (Auto) (0-900) /uL Eos # (Auto) (0-450) /uL Baso # (Auto) (0-100) /uL PT (10.1-12.7) SECONDS INR (0.9-1.3) D-Dimer (<500) ng/ml VBG pH 7.38 (7.33-7.43) VBG pCO2 40.6 L (45-50) mmHg VBG pO2 52 H (35-45) mmHg VBG HCO3 24 (24-28) mmol/L VBG Total CO2 25 (24-29) mmol/L VBG O2 Saturation 86 H (70-75) % VBG Base Excess -1.0 L (0-4) mmol/L FiO2 21 Sodium (137-145) mmol/L Potassium (3.4-5.1) mmol/L Chloride (98-107) mmol/L Carbon Dioxide (22-32) mmol/L BUN (7-17) mg/dL Creatinine (0.52-1.04) mg/dL Estimated GFR (>60) mL/min BUN/Creatinine Ratio (6-22) Glucose (80-110) mg/dL Lactate (0.7-2.1) mmol/L Calcium (8.4-10.2) mg/dL Magnesium (1.6-2.3) mg/dL Total Bilirubin (0.2-1.3) mg/dL AST (14-36) IU/L ALT (<35) IU/L Alkaline Phosphatase (38-126) U/L Total Creatine Kinase (30-135) U/L CK-MB (CK-2) (<2.37) ng/mL CK-MB (CK-2) Rel Index (1.5-5.0) % Troponin I < 0.012 (0.01-0.034) ng/mL NT-Pro-B Natriuret Pep (<125) pg/mL Total Protein (6.3-8.2) g/dL Albumin (3.5-5.0) g/dL Globulin (1.7-4.1) g/dL Albumin/Globulin Ratio (1.0-2.8) Lipase (23-300) U/L Urine RBC (0-5/HPF) Urine WBC (0-5/HPF) Ur Squamous Epith Cells (0-5/HPF) Amorphous Sediment Urine Bacteria (None) Ur Culture Indicated? SARS-CoV-2 (PCR) Negative (Negative) Urine Dip Bedside Urine Glucose 1000 mg/dl Bedside Urine Bilirubin ++ 2 Bedside Urine Ketone +/- 5 Urine Specific [place] 1.020 Bedside Urine Occult Blood - Negative Bedside Urine pH 5.5 Bedside Urine Protein +/- 15 Bedside Urine Urobilinogen - Negative Bedside Urine Nitrite - Negative Bedside Urine Leukocytes +/- 15 Esterase Point of care testing: Urine Dip Bedside Urine Glucose 1000 mg/dl Bedside Urine Bilirubin ++ 2 Bedside Urine Ketone +/- 5 Urine Specific [place] 1.020 Bedside Urine Occult Blood - Negative Bedside Urine pH 5.5 Bedside Urine Protein +/- 15 Bedside Urine Urobilinogen - Negative Bedside Urine Nitrite - Negative Bedside Urine Leukocytes +/- 15 Esterase Discharge Plan Departure Patient Disposition: Home Clinical Impression: SOB (shortness of breath), UTI (urinary tract infection) Instructions: DI for Urinary Tract Infection (UTI) Activity Restrictions/Additional Instructions: You were evaluated in the ED today for shortness of breath. Your EKG, echocardiogram were normal, and there is no evidence of CHF. You were diagnosed with a urinary tract infection for which you are being prescribed antibiotics. Please take your antibiotics as prescribed. It is possible that your fatigue and shortness of breath could be caused by obstructive sleep apnea and therefore it is important for you to be screened for it. Obstructive sleep apnea can very often cause you to be breathless and wake up at night and feel very fatigued during the day. Please follow-up with your PCP regarding this. Return to the ED if your shortness of breath worsens, you experience chest pain. Prescriptions: New cefpodoxime 200 mg tablet 200 mg PO BID 10 Days Qty: 20 0RF Rx Instructions: must administer with a meal/food No Action ibuprofen 800 mg tablet 800 mg PO .PRN Qty: 30 0RF Rx Instructions: Take one daily three times a day as needed for pain diazepam 2 mg tablet 2 mg PO TID PRN (Reason: anxiety) Qty: 90 1RF Rx Instructions: Note decrease in dose due to interaction with Oxycodone Decrease dose to interaction with Oxycodone (DME) elevated toilet seat See Rx Instructions .Route .MEDSUPPLY Qty: 1 0RF Rx Instructions: As directed oxycodone-acetaminophen [Percocet] 10-325 mg tablet 2 tab PO QID Qty: 240 0RF Rx Instructions: anticipate gradual wean starting next refill. Synvisc-One 48 mg/6 mL syringe 48 mg intra-articular ONCE Qty: 6 2RF triamcinolone acetonide 0.5 % cream 1 applic topical BID Qty: 15 1RF paroxetine HCl [Paxil] 20 mg tablet 20 mg PO DAILY Qty: 90 3RF Narcan 4 mg/actuation spray,non-aerosol 4 mg intranasal Q3M PRN (Reason: opioid overdose) Qty: 2 1RF Rx Instructions: spray 1 dose into ONE nostril; alternate nostrils w each dose until help arrives quetiapine [Seroquel] 25 mg tablet 25 mg PO BID Qty: 180 1RF Referrals: David Miller, DO [Primary Care Provider] - Stand Alone Forms: Patient Portal/API <Jeramie Costa DO - Last Filed: 12/20/22 18:32> Cosign ED Attending Cosignature Attestation: Dr Costa Co-Sign Statement: I was available for consultation during this patient's emergency department visit. This chart is signed by myself for administrative purposes only. I did not have direct contact with this patient during this visit. They were seen independently by the APC.
--- NOTE | 2022-12-20 14:45 | CM.SWNOTE ---
ED EQUIPMENT PROCESSOR/DCP Note EQUIPMENT PROCESSOR receives consult from ED provider BISI Solis due to concern for patient's ADLs and managing mental health. Patient is 62 y/o female who presents to ED via POV due to concern for SOB and concern for CHF, patient endorses she went to PCP recently and he ordered an ECHO for January 2023 but she wants to see results sooner. Patient's PCP is Dr. Miller, Patient has Medicare and Medicaid insurance. Patient has hx of Anxiety, Depression, Bipolar, obesity, Obstructive Sleep apnea, meniscal tear of left knee and chronic back pain. EQUIPMENT PROCESSOR enters room to meet with patient. Patient presents as A/Ox4, elevated affect, circumstantial thought process, and pressured speech. Patient endorses she resides alone in low income housing apartment in [place] and has resided there for the last 13 years. Patient endorses she drives her car [place]. Patient endorses she has barely left her house in the last 4 months due to her nephew's recent car accident and rehabilitation, prior to this patient saw her sister who resides on [facility] regularly. Patient endorses she has been waking up with SOB and difficulty breathing and reported this concern for PCP at recent appt and he ordered ECHO, patient endorses increase in anxiety and concern for CHF as that is what led to the passing of her spouse 6 years ago. Patient endorses she presented to the ED today seeking labs and confirmation regarding any pending medical diagnoses. Patient endorses she typically keeps a very clean house but has noticed she has been less motivated to do so in recent months. Patient endorses she is able to manage ADLs, utilizes help from neighbors to do laundry as patient has difficulty with her twenty stairs to her apartment. Patient endorses she uses a cane at baseline, patient endorses she has rails in shower and elevated toilet seat. Patient endorses concern for pain and or falling. Patient endorses that she often gets sick when she eats or has very little appetite, patient endorses she is working on reducing her soda intake in effort to lose weight. Patient endorses several supports from her 6 siblings who live throughout the [facility] and one sister that lives locally. Patient endorses plans and interest to move in to live with sister in [place]. Patient endorses she believes she will be happier moving off of [facility] but knows it would be difficult to find a similar housing situation if she ever wanted to return. Patient endorses she is on SSI disability and receives aprox. $1700/month. Patient endorses she has a referral for PT but has not been recently and plans to call to f/u, patient endorses hx of a referral with psychiatrist and does not have interest in returning. Patient endorses relief once she will know the results from her ECHO, ED provider ordered ECHO. ED provider endorses patient should be medically clear for d/c and patient has UTI and will be provided rx to treat this. Patient presents in ED with several calls with sister, it is observed that patient has a very good support system. Plan: Patient to d/c to home upon medical clearance, patient to f/u with PCP, and outpatient PT, patient to f/u with family to look into moving to be closer to family. Elizabeth Alejnadre, EAR MACHINE OPERATOR
[2022-12-20 14:53] LABS: INR 1.2 (0.9-1.3); Prothrombin Time 13.2 SECONDS (10.1-12.7)
[2022-12-20 14:55] LABS: pH VBG 7.38 (7.33-7.43)
[2022-12-20 14:56] LABS: HCO3 VBG 24 mmol/L (24-28); Oxygen Saturation VBG 86 % (70-75); PCO2 VBG 40.6 mmHg (45-50); PO2 VBG 52 mmHg (35-45); Total CO2 VBG 25 mmol/L (24-29)
[2022-12-20 14:56] LABS: Lactate (Lactic Acid) 3.1 mmol/L (0.7-2.1)
[2022-12-20 14:57] LABS: Fractionated Inspired Oxygen 21
[2022-12-20 15:08] LABS: D Dimer 669 ng/ml (<500)
[2022-12-20] MEDS: SODIUM CHLORIDE 0.9% 1,000 ML 1000 ML IV (16:30)
[2022-12-20 16:47] LABS: Reflexed Lactate in 2 Hours Y
[2022-12-20 17:27] LABS: Troponin I < 0.012 ng/mL (0.01-0.034)
== END 2022-12-20 17:01 | disposition home or self-care (01) ==
PROVIDERS: Emergency Medicine; Emergency Provider Student in an Organized Health Care Education/Training Program; PCP Family Medicine
DX: R06.02 Shortness of breath (principal); N39.0 Urinary tract infection, site not specified; Z20.822 Contact with and (suspected) exposure to COVID-19
CPT/HCPCS: 36415; 71045; 80053; 81003; 81015; 82550; 82553; 82805; 83605; 83690; 83735; 83880; 84484; 85025; 85379; 85610; 87077; 87086; 87147; 87635; 93005; 99284; C9803; C8929; Q9957

== ENCOUNTER → 2023-03-16 17:23 | Outpatient (CLI) | payer MEDICARE, MEDICAID, SELFPAY ==
[2023-03-16 17:54] LABS: Add Manual Diff / Slide Review NO; Basophils Absolute Auto 100 /uL (0-100); Basophils Percent Auto 0.9 % (0-2); Eosinophils Absolute Auto 200 /uL (0-450); Eosinophils Percent Auto 2.1 % (2-4); Hematocrit 36.6 % (36-46); Hemoglobin 11.6 g/dL (12.0-16.0); Lymphocytes Absolute Auto 3500 /uL (1100-4500); Lymphocytes Percent Auto 30.6 % (25-40); Mean Corpuscular HGB Conc 31.7 % (30-36); Mean Corpuscular Hemoglobin 24.2 PG (26-34); Mean Corpuscular Volume 76.3 fL (80-100); Monocytes Absolute Auto 800 /uL (0-900); Monocytes Percent Auto 6.6 % (3-14); Neutrophils Absolute Auto 6900 /uL (1500-7000); Neutrophils Percent Auto 59.8 % (50-75); Platelet Count 411 X10^3/uL (150-400); Red Cell Distribution Width 16.2 % (11.6-14.8); White Blood Cell Count 11.6 X10^3/uL (4.5-11.0)
[2023-03-16 18:18] LABS: Alanine Aminotransferase 27 IU/L (<35); Albumin 4.3 g/dL (3.5-5.0); Albumin Globulin Ratio 1.1 (1.0-2.8); Alkaline Phosphatase 89 U/L (38-126); Aspartate Aminotransferase 37 IU/L (14-36); BUN Creatinine Ratio 24.8 (6-22); Blood Urea Nitrogen 26 mg/dL (7-17); Calcium 8.9 mg/dL (8.4-10.2); Carbon Dioxide 21 mmol/L (22-32); Chloride 102 mmol/L (98-107); Estimated Glomerular Filt Rate 60 mL/min (>60); Globulin 3.8 g/dL (1.7-4.1); Glucose 264 mg/dL (80-110); HEMOLYSIS < 15 (0-50); Iron 43 ug/dL (37-170); Magnesium 1.5 mg/dL (1.6-2.3); Potassium 4.6 mmol/L (3.4-5.1); Sodium 137 mmol/L (137-145); Total Protein 8.1 g/dL (6.3-8.2)
[2023-03-16 18:29] LABS: Percent Iron Saturation 10 % (15-50); Total Iron Binding Capacity 442 ug/dL (265-497); Transferrin 343 mg/dL (206-381)
[2023-03-16 19:03] LABS: Vitamin B12 557 pg/mL (239-931)
== END ==
PROVIDERS: PCP Family Medicine; Referring Provider Family Medicine; Visit Provider Family Medicine
DX: E11.9 Type 2 diabetes mellitus without complications (principal); E83.51 Hypocalcemia; R10.13 Epigastric pain
CPT/HCPCS: 36415; 80053; 82607; 83036; 83540; 83550; 83735; 85025

== ENCOUNTER → 2023-08-15 11:55 | Outpatient (CLI) | payer MEDICARE, SELFPAY ==
[2023-08-15 12:20] LABS: Add Manual Diff / Slide Review NO; Basophils Absolute Auto 100 /uL (0-100); Eosinophils Absolute Auto 200 /uL (0-450); Eosinophils Percent Auto 1.7 % (2-4); Hematocrit 37.6 % (36-46); Hemoglobin 11.8 g/dL (12.0-16.0); Lymphocytes Absolute Auto 3800 /uL (1100-4500); Lymphocytes Percent Auto 34.8 % (25-40); Mean Corpuscular HGB Conc 31.5 % (30-36); Mean Corpuscular Hemoglobin 25.7 PG (26-34); Mean Corpuscular Volume 81.7 fL (80-100); Monocytes Absolute Auto 700 /uL (0-900); Monocytes Percent Auto 6.9 % (3-14); Neutrophils Absolute Auto 6100 /uL (1500-7000); Neutrophils Percent Auto 55.6 % (50-75); Platelet Count 412 X10^3/uL (150-400); Red Cell Distribution Width 17.2 % (11.6-14.8); White Blood Cell Count 10.9 X10^3/uL (4.5-11.0)
[2023-08-15 12:25] LABS: Hemoglobin A1C% w Est Avg Glu 7.8 % (4.0-6.0)
[2023-08-15 12:52] LABS: Alanine Aminotransferase 22 IU/L (<35); Albumin 3.9 g/dL (3.5-5.0); Albumin Globulin Ratio 1.1 (1.0-2.8); Alkaline Phosphatase 88 U/L (38-126); Aspartate Aminotransferase 33 IU/L (14-36); BUN Creatinine Ratio 25.5 (6-22); Bilirubin Total 0.9 mg/dL (0.2-1.3); Blood Urea Nitrogen 27 mg/dL (7-17); Calcium 9.3 mg/dL (8.4-10.2); Carbon Dioxide 24 mmol/L (22-32); Chloride 103 mmol/L (98-107); Estimated Glomerular Filt Rate 59 mL/min (>60); Globulin 3.4 g/dL (1.7-4.1); Glucose 189 mg/dL (80-110); HEMOLYSIS < 15 (0-50); NT-proBNP (BNP-Adult 18+) 160 pg/mL (<125); Sodium 137 mmol/L (137-145); Total Protein 7.3 g/dL (6.3-8.2)
[2023-08-15 18:35] LABS: Creatinine Urine Random 296.3 mg/dL; Microalbumi Creatinin Ratio Ur 10.1 ug/mg CR (<30)
== END ==
PROVIDERS: PCP Family Medicine; Referring Provider Family Medicine; Visit Provider Family Medicine
DX: E83.51 Hypocalcemia (principal); R79.0 Abnormal level of blood mineral; T73.3XXA Exhaustion due to excessive exertion, initial encounter; E11.9 Type 2 diabetes mellitus without complications
CPT/HCPCS: 36415; 80053; 82043; 82570; 83036; 83880; 85025

== ENCOUNTER → 2023-12-11 17:00 | Outpatient (ROUT) | payer MEDICARE, SELFPAY ==
[2023-12-11 17:45] LABS: Hemoglobin A1C% w Est Avg Glu 7.4 % (4.0-6.0)
[2023-12-11 18:16] LABS: Alanine Aminotransferase 22 IU/L (<35); Albumin Globulin Ratio 1.1 (1.0-2.8); Alkaline Phosphatase 94 U/L (38-126); Aspartate Aminotransferase 30 IU/L (14-36); Bilirubin Total 0.8 mg/dL (0.2-1.3); Blood Urea Nitrogen 25 mg/dL (7-17); Calcium 8.6 mg/dL (8.4-10.2); Carbon Dioxide 22 mmol/L (22-32); Chloride 108 mmol/L (98-107); Estimated Glomerular Filt Rate > 60 mL/min (>60); Globulin 3.5 g/dL (1.7-4.1); Glucose 156 mg/dL (80-110); HEMOLYSIS < 15 (0-50); Potassium 4.1 mmol/L (3.4-5.1); Sodium 139 mmol/L (137-145); Total Protein 7.5 g/dL (6.3-8.2)
== END ==
PROVIDERS: PCP Family Medicine; Visit Provider Family Medicine
DX: E83.51 Hypocalcemia (principal); E11.9 Type 2 diabetes mellitus without complications; G89.4 Chronic pain syndrome
CPT/HCPCS: 80053; 83036

== ENCOUNTER → 2024-02-01 12:10 | Outpatient (CLI) | payer MEDICARE, SELFPAY ==
[2024-02-01 12:51] LABS: Add Manual Diff / Slide Review NO; Basophils Absolute Auto 100 /uL (0-100); Basophils Percent Auto 0.5 % (0-2); Eosinophils Absolute Auto 200 /uL (0-450); Eosinophils Percent Auto 1.9 % (2-4); Hematocrit 36.6 % (36-46); Hemoglobin 11.6 g/dL (12.0-16.0); Lymphocytes Absolute Auto 3500 /uL (1100-4500); Lymphocytes Percent Auto 29.5 % (25-40); Mean Corpuscular HGB Conc 31.6 % (30-36); Mean Corpuscular Hemoglobin 26.3 PG (26-34); Mean Corpuscular Volume 83.2 fL (80-100); Monocytes Absolute Auto 800 /uL (0-900); Monocytes Percent Auto 6.5 % (3-14); Neutrophils Absolute Auto 7300 /uL (1500-7000); Neutrophils Percent Auto 61.6 % (50-75); Platelet Count 437 X10^3/uL (150-400); Red Cell Distribution Width 16.1 % (11.6-14.8); White Blood Cell Count 11.9 X10^3/uL (4.5-11.0)
[2024-02-01 12:59] LABS: Hemoglobin A1C% w Est Avg Glu 6.9 % (4.0-6.0)
[2024-02-01 13:27] LABS: Alanine Aminotransferase 17 IU/L (<35); Albumin 3.8 g/dL (3.5-5.0); Albumin Globulin Ratio 1.1 (1.0-2.8); Alkaline Phosphatase 100 U/L (38-126); Aspartate Aminotransferase 38 IU/L (14-36); BUN Creatinine Ratio 17.5 (6-22); Bilirubin Total 1.1 mg/dL (0.2-1.3); Blood Urea Nitrogen 20 mg/dL (7-17); Calcium 8.8 mg/dL (8.4-10.2); Carbon Dioxide 21 mmol/L (22-32); Chloride 110 mmol/L (98-107); Estimated Glomerular Filt Rate 54 mL/min (>60); Globulin 3.6 g/dL (1.7-4.1); Glucose 137 mg/dL (80-110); HEMOLYSIS < 15 (0-50); Potassium 4.9 mmol/L (3.4-5.1); Sodium 139 mmol/L (137-145); Total Protein 7.4 g/dL (6.3-8.2)
[2024-02-01 13:44] LABS: Free T4, Direct Thyroxine 0.67 ng/dL (0.78-2.19)
[2024-02-01 13:58] LABS: Thyroid Stimulating Hormone 2.54 uIU/mL (0.47-4.68)
== END ==
PROVIDERS: PCP Family Medicine; Referring Provider Family Medicine; Visit Provider Family Medicine
DX: E11.9 Type 2 diabetes mellitus without complications (principal); N28.9 Disorder of kidney and ureter, unspecified; E83.51 Hypocalcemia; R79.0 Abnormal level of blood mineral
CPT/HCPCS: 36415; 80053; 83036; 84439; 84443; 85025

== ENCOUNTER → 2024-07-12 09:43 | Outpatient (CLI) | payer MEDICARE, MEDICAID, SELFPAY ==
[2024-07-12 11:32] LABS: Ur Creatinine Normal (Normal); Ur Specific Gravity Normal (Normal); Urine Oxycodone Positive (Negative); Urine THC Negative (Negative); Urine pH Normal (Normal)
[2024-07-12 11:33] LABS: Urine Amphetamines Negative (Negative); Urine Barbiturates Negative (Negative); Urine Benzodiazepines Positive (Negative); Urine Cocaine Negative (Negative); Urine MDMA Negative (Negative); Urine Methadone Negative (Negative); Urine Methamphetamines Negative (Negative); Urine Opiates Negative (Negative); Urine Phencyclidine Negative (Negative); Urine Tricyclic Antidepressant Negative (Negative)
[2024-07-12 11:47] LABS: Creatinine Urine Random 339.56 mg/dL
[2024-07-12 11:51] LABS: Microalbumin Urine Random 13.6 mg/dL (0-1.6)
[2024-07-12 12:45] LABS: Hemoglobin A1C% w Est Avg Glu 6.7 % (4.0-6.0)
[2024-07-12 13:26] LABS: Alanine Aminotransferase 25 IU/L (<35); Albumin 4.2 g/dL (3.5-5.0); Albumin Globulin Ratio 1.2 (1.0-2.8); Alkaline Phosphatase 97 U/L (38-126); Aspartate Aminotransferase 31 IU/L (14-36); BUN Creatinine Ratio 15.7 (6-22); Bilirubin Total 1.2 mg/dL (0.2-1.3); Blood Urea Nitrogen 16 mg/dL (7-17); Calcium 9.3 mg/dL (8.4-10.2); Carbon Dioxide 19 mmol/L (22-32); Chloride 105 mmol/L (98-107); Cholesterol 234 mg/dL (140-199); Estimated Glomerular Filt Rate > 60 mL/min (>60); Globulin 3.4 g/dL (1.7-4.1); Glucose 132 mg/dL (80-110); HDL Cholesterol 63 mg/dL (40-60); HEMOLYSIS < 15 (0-50); LDL Cholesterol Calculated 138 mg/dL (<100); Potassium 4.7 mmol/L (3.4-5.1); Sodium 138 mmol/L (137-145); Total Protein 7.6 g/dL (6.3-8.2); Triglycerides 165 mg/dL (35-150)
[2024-07-12 13:40] LABS: TSH w/ Reflex to FT4 2.77 uIU/mL (0.47-4.68)
== END ==
PROVIDERS: PCP Family Medicine; Referring Provider Family Medicine; Visit Provider Family Medicine
DX: E11.9 Type 2 diabetes mellitus without complications (principal); G89.4 Chronic pain syndrome; F41.9 Anxiety disorder, unspecified; E83.51 Hypocalcemia; N28.9 Disorder of kidney and ureter, unspecified; R79.0 Abnormal level of blood mineral
CPT/HCPCS: 36415; 80053; 80061; 80305; 82043; 82570; 83036; 84443

== ENCOUNTER → 2024-10-14 14:48 | Outpatient (CLI) | payer MEDICARE, MEDICAID, SELFPAY ==
[2024-10-14 15:45] LABS: Hemoglobin A1C% w Est Avg Glu 6.7 % (4.0-6.0)
[2024-10-14 15:49] LABS: HEMOLYSIS < 15 (0-50); Iron 44 ug/dL (37-170)
[2024-10-14 15:59] LABS: Alanine Aminotransferase 24 IU/L (<35); Albumin Globulin Ratio 1.3 (1.0-2.8); Alkaline Phosphatase 97 U/L (38-126); Aspartate Aminotransferase 36 IU/L (14-36); BUN Creatinine Ratio 10.9 (6-22); Bilirubin Total 0.7 mg/dL (0.2-1.3); Blood Urea Nitrogen 21 mg/dL (7-17); Calcium 9.2 mg/dL (8.4-10.2); Carbon Dioxide 19 mmol/L (22-32); Chloride 105 mmol/L (98-107); Cholesterol 234 mg/dL (140-199); Estimated Glomerular Filt Rate 29 mL/min (>60); Globulin 3.2 g/dL (1.7-4.1); Glucose 194 mg/dL (80-110); HDL Cholesterol 48 mg/dL (40-60); HEMOLYSIS < 15 (0-50); LDL Cholesterol Calculated 136 mg/dL (<100); Potassium 5.3 mmol/L (3.4-5.1); Sodium 138 mmol/L (137-145); Total Protein 7.2 g/dL (6.3-8.2); Triglycerides 252 mg/dL (35-150)
[2024-10-14 16:02] LABS: Percent Iron Saturation 15 % (15-50); Total Iron Binding Capacity 302 ug/dL (265-497); Transferrin 288 mg/dL (206-381)
[2024-10-14 16:11] LABS: Free T4, Direct Thyroxine 0.76 ng/dL (0.78-2.19)
[2024-10-14 16:25] LABS: Thyroid Stimulating Hormone 5.96 uIU/mL (0.47-4.68)
[2024-10-14 16:44] LABS: Vitamin B12 410 pg/mL (239-931)
== END ==
LOC: LAB 14:49
PROVIDERS: PCP Family Medicine; Referring Provider Family Medicine; Visit Provider Family Medicine
DX: E11.9 Type 2 diabetes mellitus without complications (principal); M54.9 Dorsalgia, unspecified; D64.9 Anemia, unspecified; F41.9 Anxiety disorder, unspecified; G89.4 Chronic pain syndrome; E83.51 Hypocalcemia
CPT/HCPCS: 36415; 80053; 80061; 82607; 83036; 83540; 83550; 84439; 84443

== ENCOUNTER → 2025-04-15 13:57 | Outpatient (CLI) | payer MEDICARE, MEDICAID, SELFPAY ==
[2025-04-15 14:53] LABS: Add Manual Diff / Slide Review NO; Hematocrit 37.1 % (36-46); Hemoglobin 11.6 g/dL (12.0-16.0); Lymphocytes Absolute Auto 4100 /uL (1100-4500); Mean Corpuscular HGB Conc 31.3 % (30-36); Mean Corpuscular Hemoglobin 25.1 PG (26-34); Mean Corpuscular Volume 79.9 fL (80-100); Platelet Count 370 X10^3/uL (150-400)
[2025-04-15 14:57] LABS: Hemoglobin A1C% w Est Avg Glu 7.3 % (4.0-6.0)
[2025-04-15 15:25] LABS: HEMOLYSIS < 15 (0-50); Iron 77 ug/dL (37-170)
[2025-04-15 15:26] LABS: Alanine Aminotransferase 16 IU/L (<35); Albumin 4.1 g/dL (3.5-5.0); Albumin Globulin Ratio 1.3 (1.0-2.8); Alkaline Phosphatase 86 U/L (38-126); Blood Urea Nitrogen 22 mg/dL (7-17); Calcium 9.0 mg/dL (8.4-10.2); Carbon Dioxide 23 mmol/L (22-32); Chloride 104 mmol/L (98-107); Cholesterol 245 mg/dL (140-199); Estimated Glomerular Filt Rate 39 mL/min (>60); Globulin 3.2 g/dL (1.7-4.1); Glucose 126 mg/dL (70-99); HDL Cholesterol 53 mg/dL (40-60); HEMOLYSIS < 15 (0-50); Potassium 4.9 mmol/L (3.4-5.1); Sodium 139 mmol/L (137-145); Total Protein 7.3 g/dL (6.3-8.2); Triglycerides 235 mg/dL (35-150); Uric Acid 6.5 mg/dL (2.5-6.2)
[2025-04-15 15:37] LABS: Percent Iron Saturation 22 % (15-50); Total Iron Binding Capacity 351 ug/dL (265-497); Transferrin 306 mg/dL (206-381)
[2025-04-15 15:56] LABS: TSH w/ Reflex to FT4 3.83 uIU/mL (0.47-4.68)
[2025-04-15 15:59] LABS: NT-proBNP (BNP-Adult 18+) 97 pg/mL (<125)
[2025-04-15 16:15] LABS: Vitamin B12 326 pg/mL (239-931)
== END ==
PROVIDERS: PCP Family Medicine; Referring Provider Family Medicine; Visit Provider Family Medicine
DX: Z00.00 Encounter for general adult medical examination without abnormal findings (principal); E11.9 Type 2 diabetes mellitus without complications; I50.9 Heart failure, unspecified; D50.8 Other iron deficiency anemias; I95.0 Idiopathic hypotension; R10.13 Epigastric pain
CPT/HCPCS: 36415; 80053; 80061; 82607; 83036; 83540; 83550; 83880; 84443; 84550; 85025

== ENCOUNTER → 2025-04-23 14:59 | Outpatient (CLI) | payer MEDICARE, MEDICAID, SELFPAY ==
--- NOTE | 2025-04-23 15:01 | DI.ECHO.S_ITS ---
[facility] : : [id number] : : [id number] : : Phone: [phone] Echocardiogram Report + + :Name: ALLAN GARCIA Study Date: 04/23/2025 Height: 67 in : :[facility] ReadingLocation: Weight: 280 lb: : Gender: Female BSA: 2.3 m2 : :: 1960 Age: 65 yrs BP: 81/64 mmHg: :Reason For Study: HYPOTENSION : :Ordering Physician: DARCY, : :AUGUST Performed By: Maximilian Gage : :Referring: AUGUST TAVERAS : + + Interpretation Summary The study quality was technically difficult. Left ventricular wall thickness is mildly increased. The ejection fraction is estimated to be 50-55%. Regional wall motion abnormalities cannot be excluded due to limited visualization. Diastolic function could not be accurately assessed due to unobtainable data. The right ventricle is not well visualized. Visually, the right ventricle appears dilated. Right ventricular systolic function is mildly reduced. No obvious valvular abnormalities. Pulmonary artery pressures cannot be estimated because of the lack of a measurable TR jet velocity but the IVC suggests a CVP of around 3 mmHg. Procedure: A two-dimensional transthoracic echocardiogram with color flow and Doppler was performed. A contrast injection of Definity was performed to improve assessment of LV function. The study quality was technically difficult. Comparison is made with the echocardiogram of 12/20/2022. The patient was in normal sinus rhythm during the exam. Left Ventricle: The left ventricle is normal in size. Left ventricular wall thickness is mildly increased. There is no ventricular septal defect visualized. The ejection fraction is estimated to be 50-55%. Regional wall motion abnormalities cannot be excluded due to limited visualization. Diastolic function could not be accurately assessed due to unobtainable data. Right Ventricle: The right ventricle is not well visualized. Visually, the right ventricle appears dilated. Right ventricular systolic function is mildly reduced. Atria: The left atrium is not well visualized. Right atrium not well visualized. The interatrial septum is not well visualized. Mitral Valve: The mitral valve leaflets appear normal. There is no evidence of stenosis, fluttering, or prolapse. There is no mitral regurgitation noted. Aortic Valve: The aortic valve is trileaflet. The aortic valve is mildly calcified. There is no aortic valve stenosis. No aortic regurgitation is present. Tricuspid Valve: The tricuspid valve is not well visualized, but is grossly normal. No tricuspid regurgitation. Pulmonary artery pressures cannot be estimated because of the lack of a measurable TR jet velocity but the IVC suggests a CVP of around 3 mmHg. Pulmonic Valve: The pulmonic valve is not well seen, but is grossly normal. There is no pulmonic valvular regurgitation. Great Vessels: The aortic root is normal size. The dimensions of the ascending aorta are normal. The pulmonary artery is normal size. The IVC is of normal diameter and collapses greater than 50% with a sniff. This suggests a low right atrial pressure of 3 mm Hg. Pericardium/ Pleura There is no pericardial effusion. There is no pleural effusion. MMode/2D Measurements & Calculations LVIDd: 5.0 cm LVOT diam: 1.9 cm LVIDs: 3.4 cm Ao root diam: 2.9 cm FS: 31.0 % EPSS: 1.1 cm IVSd: 1.4 cm LVPWd: 1.4 cm LV sousa. diameter/BSA (cm/m^2): 2.1 LV sys. diameter/BSA (cm/m^2): 1.5 LA A2 area: 14.3 cm2 RA long axis: 4.9 cm LA A4 area: 16.2 cm2 RA area: 10.0 cm2 LA length (vol): 4.9 cm RA vol: 17.7 ml LA vol: 40.2 ml RA : 7.6 ml/m2 LA vol index: 17.2 ml/m2 IVC diam: 1.9 cm RVD1 (basal): 3.3 cm RVD2 (mid): 2.4 cm TAPSE: 1.6 cm Doppler Measurements & Calculations Ao V2 max: 106.1 cm/sec LVOT Max Mikey: 77.4 cm/sec Ao V2 mean: 80.7 cm/sec LV V1 max P.4 mmHg Ao max P.5 mmHg LV V1 VTI: 14.7 cm Ao mean P.8 mmHg ANGELIKA(I,D): 2.1 cm2 Ao V2 VTI: 20.3 cm ANGELIKA(V,D): 2.1 cm2 sev ratio: 0.73 ANGELIKA indexed to BSA (cm^2/m^2): 0.89 MV E max mikey: 57.0 cm/sec PA V2 max: 84.4 cm/sec MV A max mikey: 59.1 cm/sec PA V2 mean: 62.1 cm/sec MV E/A: 0.97 PA mean P.7 mmHg Med Peak E' Mikey: 5.2 cm/sec PA pr(Accel): 43.0 mmHg E/E' med: 11.0 Lat Peak E' Mikey: 7.4 cm/sec E/E' lat: 7.8 E/e' average: 9.4 MV dec time: 0.21 sec SV(LVOT): 42.2 ml Reading Physician:08:32 PM
== END ==
LOC: ECHO 15:00
PROVIDERS: PCP Family Medicine; Referring Provider Family Medicine; Visit Provider Family Medicine
DX: I95.0 Idiopathic hypotension (principal); R10.13 Epigastric pain
CPT/HCPCS: C8929; Q9957